=== PATIENT | female | born 1965 | race Caucasian/White ===

== ENCOUNTER 2016-07-01 08:51 | Emergency (ER) | payer BC, OTHER ==
[~2016-07-01] VITALS: Ht 167.6 cm; Wt 54.4 kg
[~2016-07-01 08:51] MED LIST: BCP; GILDESS FE PO; MAGOX 400400 MG PO; NORCO 5-325 TA1 EACH PO; SYMBICORT160 MCG/4. INH; TUMS PO
[2016-07-01 08:52] VITALS: BP 119/86
[2016-07-01] MEDS ORDERED: UNICOMPLEX M TA1 TA1 PO (08:57)
[2016-07-01] MEDS ORDERED: ZYRTEC10 M2 PO (08:57)
[2016-07-01] MEDS ORDERED: BACTROBAN CREAM30 G1 TOP (09:22)
== END 2016-07-01 09:51 | disposition home or self-care (01) ==
LOC: ER 08:51
DX: L01.09 Other impetigo (principal); Z88.8 Allergy status to other drugs, medicaments and biological substances